=== PATIENT | female | born 1965 | race Caucasian/White ===

== ENCOUNTER 2021-06-09 11:50 | Emergency (ER) | payer SELFPAY ==
[2021-06-09] MEDS ORDERED: Ondansetron ODT 4 MG TAB ONE (12:40)
== END 2021-06-09 12:58 | disposition home or self-care (01) ==
LOC: ERS 11:50
DX: A08.4 Viral intestinal infection, unspecified (principal)
CPT/HCPCS: 99283; Q0162

== ENCOUNTER 2023-03-15 20:51 | Emergency (ER) | payer SELFPAY ==
[2023-03-15 22:54] LABS: #Basophils 0.1 thou/uL (0.0-0.2); #Eosinphils 0.1 thou/uL (0.0-0.7); #Monocytes 0.5 thou/uL (0.11-0.59); #Neutrophils 6.3 thou/uL (1.40-6.50); %Basophils 0.7 % (0.0-1.0); %Eosinophils 1.2 % (0.0-10.0); %Lymphocytes 20.8 % (21.0-51.0); %Monocytes 5.8 % (0.0-10.0); %Neutrophils 70.9 % (42.0-75.0); Hemoglobin 14.8 g/dL (12.0-16.0); Mean Corpuscular HGB CONC 32.2 g/dL (32.0-36.0); Mean Corpuscular Hemoglobin 28.6 pg (27.0-31.0); Mean Platelet Volume 10.6 fL (7.4-10.4); Platelet Count 305 10x3/uL (130-400); Red Blood Cell (RBC) Count 5.17 mill/uL (4.20-5.40); White Blood Cell (WBC) Count 8.9 10x3/uL (4.8-10.8)
[2023-03-15 23:21] LABS: ALT (SGPT) 14 U/L (8-55); AST (SGOT) 17 U/L (5-34); Albumin 4.6 g/dL (3.5-5.0); Alkaline Phosphatase 86 U/L (40-110); Anion Gap 15 mmol/L (10-20); BUN (Urea Nitrogen) 13 mg/dL (9.8-20.1); Bilirubin, Total 0.4 mg/dL (0.2-1.2); Calc. Creatinine Clearance 0 mL/min (70-130); Carbon Dioxide 28 mmol/L (22-29); Chloride 105 mmol/L (98-107); Estimated GFR 80; Globulin 2.5 g/dL (2.4-3.5); Glucose 153 mg/dL (70-105); Potassium 4.4 mmol/L (3.5-5.1); Protein, Total 7.1 g/dL (6.0-8.3); Sodium 144 mmol/L (136-145)
[2023-03-15] MEDS ORDERED: Amlodipine 5 MG TAB ONE (23:21)
[2023-03-15 23:25] LABS: Troponin I 0.011 ng/mL (< 0.028)
== END 2023-03-16 00:55 | disposition home or self-care (01) ==
LOC: ERS 20:51
DX: R03.0 Elevated blood-pressure reading, without diagnosis of hypertension (principal)
CPT/HCPCS: 36415; 80053; 84484; 85025; 93005

== ENCOUNTER 2023-10-03 08:18 | Emergency (ER) | payer OTHER, SELFPAY | END 2023-10-03 10:01 | disposition home or self-care (01) | LOC: ERS 08:18 | DX: R11.2 Nausea with vomiting, unspecified (principal); Z76.0 Encounter for issue of repeat prescription | CPT/HCPCS: 99283 ==

== ENCOUNTER 2024-01-19 20:38 | Emergency (ER) | payer OTHER | END 2024-01-19 21:55 | disposition home or self-care (01) | LOC: ERS 20:38 | DX: G56.01 Carpal tunnel syndrome, right upper limb (principal); I10 Essential (primary) hypertension ==

== ENCOUNTER 2024-04-07 19:27 | Emergency (ER) | payer OTHER, SELFPAY | END 2024-04-07 20:20 | disposition home or self-care (01) | LOC: ERS 19:27 | DX: R09.81 Nasal congestion (principal); I10 Essential (primary) hypertension | CPT/HCPCS: 99283 ==